=== PATIENT | female | born 1945 | race Two or more races ===

== ENCOUNTER 2020-10-11 08:13 | Outpatient (CLI) | payer OTHER ==
[~2020-10-11 08:13] MED LIST: AVALIDE 300-251 TAB PO; CATAPRES0.1 MG PO; CATAPRES0.2 MG PO; CLONAZEPAM0.5 MG PO; LOTREL 10-20 MG1 CAP PO; METFORMIN HCL500 MG PO; NEURONTIN300 MG PO; NITROGLYCERIN0.3 MG SL; PROTONIX40 MG PO; WELLBUTRIN100 MG PO
== END 2020-10-11 13:27 | disposition home or self-care (01) ==
LOC: LAB 08:13
PROVIDERS: ATTEND Internal Medicine Hematology & Oncology
DX: I10 Essential (primary) hypertension (principal); D69.49 Other primary thrombocytopenia; I48.19 Other persistent atrial fibrillation; E11.42 Type 2 diabetes mellitus with diabetic polyneuropathy; E11.40 Type 2 diabetes mellitus with diabetic neuropathy, unspecified; E11.22 Type 2 diabetes mellitus with diabetic chronic kidney disease; R97.8 Other abnormal tumor markers; R97.1 Elevated cancer antigen 125 [CA 125]; R97.0 Elevated carcinoembryonic antigen [CEA]